=== PATIENT | female | born 1995 | race Caucasian/White ===

== ENCOUNTER 2018-08-31 12:21 | Emergency (ER) | payer OTHER ==
[~2018-08-31] VITALS: Ht 165.1 cm; Wt 59.0 kg
== END 2018-08-31 16:55 | disposition home or self-care (01) ==
LOC: ER 12:21
DX: T58.8X1A Toxic effect of carbon monoxide from other source, accidental (unintentional), initial encounter (principal); T65.891A Toxic effect of other specified substances, accidental (unintentional), initial encounter; T59.891A Toxic effect of other specified gases, fumes and vapors, accidental (unintentional), initial encounter; T52.3X1A Toxic effect of glycols, accidental (unintentional), initial encounter; R51 Headache; Y92.520 Airport as the place of occurrence of the external cause